=== PATIENT | female | born 1970 | race Caucasian/White ===

== ENCOUNTER 2017-01-27 22:17 | Emergency (ER) | payer OTHER ==
[~2017-01-27] VITALS: Ht 162.6 cm; Wt 85.9 kg
[2017-01-27 22:25] VITALS: Ht 162.6 cm; Wt 85.9 kg
[2017-01-28] MEDS ORDERED: KETOROLAC 30 MG INJ IV STA (00:50)
[2017-01-28 01:46] LABS: BASOPHIL # 0.1 10^3/ul (0.0-0.1); BASOPHILS % 0.4 % (0.0-2.0); EOSINOPHILS # 0.1 10^3/ul (0.0-0.5); EOSINOPHILS % 0.6 % (0.0-7.0); HEMATOCRIT 44.8 % (37.0-47.0); LYMPHOCYTES # 2.4 10^3/ul (0.8-2.9); LYMPHOCYTES % 19.4 % (15.0-51.0); MEAN CORPUSCULAR HEMOGLOBIN 29.7 pg (29.0-33.0); MEAN CORPUSCULAR HGB CONC 33.5 g/dl (32.0-37.0); MEAN CORPUSCULAR VOLUME 88.7 fl (82.0-101.0); MONOCYTES % 8.4 % (0.0-11.0); NEUTROPHIL # 8.7 10^3/ul (1.6-7.5); NEUTROPHILS % 70.7 % (39.0-77.0); PLATELET COUNT 318 10^3/UL (140-415); RED BLOOD COUNT 5.05 10^6/ul (4.20-5.40); RED CELL DISTRIBUTION WIDTH 13.1 % (11.5-14.5); WHITE BLOOD COUNT 12.3 10^3/ul (4.8-10.8)
--- NOTE | 2017-01-28 01:56 | RADRPT ---
PROCEDURE: CT ABDOMEN/PELVIS WITHOUT CONTRAST CLINICAL INDICATION: 46-year-old female with left flank pain. TECHNIQUE: The study was performed utilizing a [employer] VCT 64-slice CT scanner. Direct axia l sections were obtained through the abdomen and pelvis without the use of intravenous contrast mate rial. Sagittal and coronal reformations were obtained. One or more of the following dose reduction t echniques were utilized: automated exposure control, adjustment of the mA and/or kV according to pat ient's size and/or the use of iterative reconstruction technique. DICOM images are available. The im ages were reviewed on a PACS workstation. CTD/vol = 16.9 mGy; Total Exam DLP = 1006.3 mGy-cm. COMPARISON: None. FINDINGS: The lung bases are unremarkable. There is no evidence for significant pleural effusion. The liver has a normal size and contour without focal areas of abnormal density. No intrahepatic nor extrahepa tic biliary ductal dilatation is seen. The gallbladder contains layering increased density presumabl y representing sludge without evidence for calcified stones, significant wall thickening or perichol ecystic fluid. The pancreas is without areas of abnormal attenuation. The spleen is identified and has a normal size without abnormal density. The adrenal glands are unremarkable. There is mild left- sided hydroureteronephrosis with an obstructing left ureterovesical junction calculus measuring appr oximately 5 x 4 x 4 mm. There are multiple small bilateral nonobstructing diffuse renal calculi. The urinary bladder is decompressed. There is mild retained stool within the ascending and transverse c olon without obstruction. The appendix is visualized and is without abnormal thickening or surrounding inflammatory reaction. The uterus is unremarkable. There is a small left ovarian cyst me asuring approximately 1.2 x 1.2 x 1.3 cm. There is no significant pelvic free fluid. The aortoiliac vessels are without aneurysmal dilatation. The osseous structures are intact. IMPRESSION: 1. Mild left-sided hydroureteronephrosis with an obstructing left ureterovesical junction 5 x 4 mm calculus. 2. Multiple bilateral diffuse nonobstructing renal calculi. 3. Mild retained stool within the proximal colon without obstruction. 4. No CT evidence for appendicitis. 5. Probable sludge within the gallbladder. 6. Small left ovarian cyst. .Gabino Manzo MD, MD Date Time Electronically viewed and signed by .Gabino Manzo MD, MD on 01/28/2017 01:56 .M/
[2017-01-28 02:05] LABS: ALBUMIN 4.4 g/dl (3.3-4.9); ALBUMIN/GLOBULIN RATIO 1.15; BILIRUBIN,INDIRECT 0.7 mg/dl (0-1.1); BILIRUBIN,TOTAL 0.7 mg/dl (0.2-1.3); CALCIUM 8.6 mg/dl (8.4-10.2); CREATININE 1.42 mg/dl (0.44-1.00); POTASSIUM 3.5 mmol/L (3.5-5.1); TOTAL PROTEIN 8.2 g/dl (6.1-8.1)
[2017-01-28 02:08] LABS: ADD UMIC YES; UR ASCORBIC ACID NEGATIVE (NEGATIVE); UR BACTERIA FEW /HPF (NONE SEEN); UR BILIRUBIN (Dip) NEGATIVE (NEGATIVE); UR BLOOD (Dip) 1+ mg/dL (NEGATIVE); UR CLARITY CLOUDY (CLEAR); UR COLOR YELLOW (YELLOW); UR GLUCOSE (Dip) NEGATIVE (NEGATIVE); UR KETONES (Dip) 1+ mg/dL (NEGATIVE); UR LEUKOCYTE ESTERASE (Dip) TRACE Leu/ul (NEGATIVE); UR NITRITE (Dip) NEGATIVE (NEGATIVE); UR RBC 35 /HPF (0-5); UR SPECIFIC GRAVITY (Dip) 1.028 (1.003-1.030); UR SQUAMOUS EPITHELIAL CELL MODERATE /HPF (FEW); UR TOTAL PROTEIN (Dip) 1+ mg/dl (NEGATIVE); UR UROBILINOGEN (Dip) NEGATIVE (NEGATIVE)
[2017-01-28] MEDS ORDERED: SOD CHLORIDE 0.9% 1,000 ML IV ONE (03:00)
[2017-01-28] MEDS ORDERED: IBUP-1542 PO (03:12)
[2017-01-28] MEDS ORDERED: HYDR-906 PO (03:13)
[2017-01-28] MEDS ORDERED: CIPR500T4 PO (03:13)
[2017-01-28] MEDS ORDERED: TAMS-14 PO (03:13)
--- NOTE | 2017-01-28 03:59 | ERD ---
ER Documentation Chief Complaint Chief Complaint sudden sharp L flank pain that started last night HPI Patient is a 46-year-old female who presents to the ED for concerns of left- sided flank pain which is radiating into her left groin. Patient states the pain started yesterday night. Patient states the pain is constant. Patient does report urinary frequency however she denies any dysuria, hematuria, urgency. Patient denies any fevers or chills. Patient does admit to nausea and vomiting. Patient reports vomiting 3 times today, nonbloody nonbilious. Patient denies any upper abdominal pain, diarrhea, chest pain, shortness breath or loss consciousness. Patient states her last mental period was on the December 29. ROS All systems reviewed and are negative except as per history of present illness. Medications Home Meds Active Scripts Hydrocodone/Acetaminophen ([place] 5-325 Tablet) 1 Each Tablet, 1 TAB PO Q6H Y for PAIN, #7 TAB Prov:DIANNA PIERCE PA-C 01/28/17 Tamsulosin Hcl* (Flomax*) 0.4 Mg Cap.er.24h, 0.4 MG PO BID, #20 CAP Prov:DIANNA PIERCE PA-C 01/28/17 Ciprofloxacin Hcl* (Ciprofloxacin Hcl*) 500 Mg Tablet, 500 MG PO BID for 10 Days , TAB Prov:DIANNA PIERCE PA-C 01/28/17 Ibuprofen* (Motrin*) 600 Mg Tab, 600 MG PO Q6, #30 TAB Prov:STANDIANNA Tillman PA-C 01/28/17 Allergies Allergies: Coded Allergies: No Known Drug Allergies (Verified Allergy, Mild, 01/28/17) PMhx/Soc Medical and Surgical Hx: pt denies Medical Hx, pt denies Surgical Hx History of Surgery: No Anesthesia Reaction: No Hx Neurological Disorder: No Hx Respiratory Disorders: No Hx Cardiac Disorders: No Hx Psychiatric Problems: No Hx Miscellaneous Medical Probl: No Hx Alcohol Use: No Hx Substance Use: No Hx Tobacco Use: No Smoking Status: Never smoker Physical Exam Vitals Vital Signs Date Time Temp Pulse Resp B/P Pulse Ox O2 Delivery O2 Flow Rate FiO2 01/27/17 22:25 98.6 85 20 137/81 100 Physical Exam GENERAL: Well-developed, well-nourished female. Appears in no acute distress. HEAD: Normocephalic, atraumatic. EYES: Pupils are equally reactive bilaterally. EOMs grossly intact. No conjunctival erythema. ENT: Moist mucous membranes. No uvula deviation. No kissing tonsils. NECK: Supple. No meningismus. Normal range of motion of the neck. LUNG: Clear to auscultation bilaterally. No rhonchi, wheezing, rales or coarse breath sounds. HEART: Regular rate and rhythm. ABDOMEN: No scars, ecchymosis or rashes noted. Soft and nondistended. Tender to palpation in the left lower quadrant. Positive bowel sounds in all four quadrants. No rebound tenderness, no guarding. (-) McBurney's point tenderness. + Left CVA tenderness. BACK: No midline tenderness. EXTREMITIES: Equal pulses bilaterally. No peripheral clubbing, cyanosis or edema. No unilateral leg swelling. NEUROLOGIC: Alert and oriented. Moving all four extremities without any difficulty. Normal speech. Steady gait. SKIN: Normal color. Warm and dry. No rashes or lesions. Result Diagram: 01/28/17 0110 01/28/17 0110 Results 24 hrs Laboratory Tests Test 01/28/17 01:10 White Blood Count 12.310^3/ul Red Blood Count 5.0510^6/ul Hemoglobin 15.0g/dl Hematocrit 44.8% Mean Corpuscular Volume 88.7fl Mean Corpuscular Hemoglobin 29.7pg Mean Corpuscular Hemoglobin Concent 33.5g/dl Red Cell Distribution Width 13.1% Platelet Count 20124^3/UL Mean Platelet Volume 10.0fl Neutrophils % 70.7% Lymphocytes % 19.4% Monocytes % 8.4% Eosinophils % 0.6% Basophils % 0.4% Nucleated Red Blood Cells % 0.0/100WBC Neutrophils # 8.710^3/ul Lymphocytes # 2.410^3/ul Monocytes # 1.010^3/ul Eosinophils # 0.110^3/ul Basophils # 0.110^3/ul Nucleated Red Blood Cells # 0.010^3/ul Urine Color YELLOW Urine Clarity CLOUDY Urine pH 5.0 Urine Specific [place] 1.028 Urine Ketones 1+mg/dL Urine Nitrite NEGATIVEmg/dL Urine Bilirubin NEGATIVEmg/dL Urine Urobilinogen NEGATIVEmg/dL Urine Leukocyte Esterase TRACELeu/ul Urine Microscopic RBC 35/HPF Urine Microscopic WBC 5/HPF Urine Squamous Epithelial Cells MODERATE/HPF Urine Bacteria FEW/HPF Urine Hemoglobin 1+mg/dL Urine Glucose NEGATIVEmg/dL Urine Total Protein 1+mg/dl Sodium Level 143mmol/L Potassium Level 3.5mmol/L Chloride Level 105mmol/L Carbon Dioxide Level 22mmol/L Anion Gap 20 Blood Urea Nitrogen 10mg/dl Creatinine 1.42mg/dl Glucose Level 102mg/dl Calcium Level 8.6mg/dl Total Bilirubin 0.7mg/dl Direct Bilirubin 0.00mg/dl Indirect Bilirubin 0.7mg/dl Aspartate Amino Transf (AST/SGOT) 18IU/L Alanine Aminotransferase (ALT/SGPT) 30IU/L Alkaline Phosphatase 94IU/L Total Protein 8.2g/dl Albumin 4.4g/dl Globulin 3.80g/dl Albumin/Globulin Ratio 1.15 Lipase 53U/L Current Medications Medications (Trade) Dose Ordered Sig/Davon Route PRN Reason Start Time Stop Time Status Last Admin Dose Admin Ketorolac Tromethamine 30 mg 30 mg ONCE STAT IV 01/28/17 00:50 01/28/17 00:51 DC 01/28/17 01:23 Sodium Chloride (NS) 1,000 ml @ 1,000 mls/hr Q1H ONCE IV 01/28/17 03:00 01/28/17 03:59 DC 01/28/17 03:06 Procedures/MDM ED COURSE: The patient was stable throughout ED course. I kept the patient and/or family informed of laboratory and diagnostic imaging results throughout the ED course. DIAGNOSTIC IMAGING: Read by radiologist. Patient: SEGUNDO CABRALES : 1970 Age: 46 Sex: F MR #: [id number] DOS: 01/28/17 0050 Ordering MD: DIANNA PIERCE PA-C Location: [facility] Room/Bed: PROCEDURE: CT ABDOMEN/PELVIS WITHOUT CONTRAST CLINICAL INDICATION: 46-year-old female with left flank pain. TECHNIQUE: The study was performed utilizing a [employer] VCT 64-slice CT scanner. Direct axial sections were obtained through the abdomen and pelvis without the use of intravenous contrast material. Sagittal and coronal reformations were obtained. One or more of the following dose reduction techniques were utilized: automated exposure control, adjustment of the mA and/ or kV according to patient's size and/or the use of iterative reconstruction technique. DICOM images are available. The images were reviewed on a PACS workstation. CTD/vol = 16.9 mGy; Total Exam DLP = 1006.3 mGy-cm. COMPARISON: None. FINDINGS: The lung bases are unremarkable. There is no evidence for significant pleural effusion. The liver has a normal size and contour without focal areas of abnormal density. No intrahepatic nor extrahepatic biliary ductal dilatation is seen. The gallbladder contains layering increased density presumably representing sludge without evidence for calcified stones, significant wall thickening or pericholecystic fluid. The pancreas is without areas of abnormal attenuation. The spleen is identified and has a normal size without abnormal density. The adrenal glands are unremarkable. There is mild left-sided hydroureteronephrosis with an obstructing left ureterovesical junction calculus measuring approximately 5 x 4 x 4 mm. There are multiple small bilateral nonobstructing diffuse renal calculi. The urinary bladder is decompressed. There is mild retained stool within the ascending and transverse colon without obstruction. The appendix is visualized and is without abnormal thickening or surrounding inflammatory reaction. The uterus is unremarkable. There is a small left ovarian cyst measuring approximately 1.2 x 1.2 x 1.3 cm. There is no significant pelvic free fluid. The aortoiliac vessels are without aneurysmal dilatation. The osseous structures are intact. IMPRESSION: 1. Mild left-sided hydroureteronephrosis with an obstructing left ureterovesical junction 5 x 4 mm calculus. 2. Multiple bilateral diffuse nonobstructing renal calculi. 3. Mild retained stool within the proximal colon without obstruction. 4. No CT evidence for appendicitis. 5. Probable sludge within the gallbladder. 6. Small left ovarian cyst. .Gabino Manzo MD, MD Date Time Electronically viewed and signed by .Gabino Manzo MD, on 01/28/2017 01:56 .M/ CC: DIANNA PIERCE PA-C PROCEDURES: None. MEDICATIONS GIVEN: IV Fluids, Toradol, Zofran Patient tolerated medication well with no adverse reactions. Patient reported improvement in pain. MEDICAL DECISION MAKING: This is a 46-year-old female presents with left-sided flank pain radiating into her groin and urinary frequency. Vital signs were reviewed. Patient was afebrile. UA showed + blood. CBC showed patient had a white count of 12.3. No evidence of severe anemia was noted. CMP showed no evidence of electrolyte abnormalities, severe acidosis, alkalosis, or liver disease. Patient's creatinine was noted to be 1.42. Lipase showed no evidence of acute pancreatitis. CT abdomen and pelvis showed 1. Mild left-sided hydroureteronephrosis with an obstructing left ureterovesical junction 5 x 4 mm calculus. 2. Multiple bilateral diffuse nonobstructing renal calculi. 3. Mild retained stool within the proximal colon without obstruction. 4. No CT evidence for appendicitis. 5. Probable sludge within the gallbladder. 6. Small left ovarian cyst. Given these findings, the patient's presentation is most consistent with nephrolithiasis, hydroureteronephrosis, gallbladder sludge, elevated creatinine. Discussed case and imaging studies with supervising physician, Dr. Wynn who agreed patient was referred for outpatient management. Patient was given urology referral information. Patient was advised that she may need lithotripsy if she does not pass the stone. Patient was advised to drink plenty of fluids. I have a much lower clinical concern for septic stone, pyelonephritis, appendicitis, diverticulitis, , ovarian torsion. PRESCRIPTIONS: [place] Ibuprofen Tamsulosin. Zofran DISCHARGE: At this time, patient is stable for discharge and outpatient management. Patient was given copy of all imaging studies and blood work obtained today. Patient given urology referral information. I have instructed the patient to follow-up with his/her primary care physician in 1-2 days. If symptoms persist, patient may need to see a specialist for further examinations and testing. I have instructed the patient to promptly return to the ER at any time for any new or worsening symptoms including increased increased pain, fever, nausea, vomiting, urinary changes or weakness. The patient and/or family expressed understanding of and agreement with this plan. All questions were answered. Home care instructions were provided. Disclaimer: Inadvertent spelling and grammatical errors are likely due to EHR/ dictation software use and do not reflect on the overall quality of patient care. Also, please note that the electronic time recorded on this note does not necessarily reflect the actual time of the patient encounter. Departure Diagnosis: Primary Impression: Nephrolithiasis Additional Impressions: Gallbladder sludge Hydroureteronephrosis Elevated serum creatinine Condition: Stable Patient Instructions: Understanding Kidney Stones Referrals: JORDAN YBARRA MD,JESSICA KENT,CAS TONY,MATEUS Vera NP Additional Instructions: Call your primary care doctor TOMORROW for an appointment during the next 1-2 days.See the doctor sooner or return here if your condition worsens before your appointment time. Drink plenty of fluids. Follow-up with urologist the next 1-2 days. DIANNA PIERCE PA-C Jan 28, 2017 03:59
== END 2017-01-28 04:35 | disposition home or self-care (01) ==
LOC: FTE 22:17
DX: N13.2 Hydronephrosis with renal and ureteral calculous obstruction (principal); K83.9 Disease of biliary tract, unspecified; R79.89 Other specified abnormal findings of blood chemistry
CPT/HCPCS: 36415; 74176; 80053; 81001; 83690; 85025; 96374; J1885; J7030; Z7502